=== PATIENT | female | born 1990 | race Caucasian/White ===

== ENCOUNTER 2017-04-29 02:55 | Emergency (ER) | payer MEDICAID ==
[~2017-04-29] VITALS: Ht 157.5 cm; Wt 104.3 kg
[~2017-04-29 02:55] MED LIST: NORPTMEDS CO
[2017-04-29 04:01] LABS: Magnesium 2.4 mg/dL (1.6-2.6)
[2017-04-29 04:20] LABS: Acetaminophen < 2.0 ug/mL (10-30); Salicylate < 1.7 mg/dL (2.8-20.0)
[2017-04-29 12:45] VITALS: BP 120/90
== END 2017-04-29 13:22 | disposition home or self-care (01) ==
LOC: ER 03:03
DX: S82.832A Other fracture of upper and lower end of left fibula, initial encounter for closed fracture (principal); W19.XXXA Unspecified fall, initial encounter; Y93.89 Activity, other specified; Y99.8 Other external cause status; Y92.511 Restaurant or cafe as the place of occurrence of the external cause
CPT/HCPCS: 29515; 36415; 70450; 73610; 80320; 80329; 83735; 84702